=== PATIENT | female | born 1990 | race Caucasian/White ===

== ENCOUNTER → 2017-03-29 | Outpatient (CLI) | payer OTHER ==
[~2017-03-29] MED LIST: GADOBUTROL 7.5 MMOL/7.5 ML VIAL ONE
== END | disposition home or self-care (01) ==
LOC: CFH 15:23
PROVIDERS: ATTEND Family Medicine
DX: G43.119 Migraine with aura, intractable, without status migrainosus (principal)
CPT/HCPCS: 70553; A9585

== ENCOUNTER 2020-09-28 14:13 | Outpatient (CLI) | payer OTHER ==
[~2020-09-28] VITALS: Ht 154.9 cm; Wt 53.6 kg
[~2020-09-28 14:13] MED LIST changes: -GADOBUTROL 7.5 MMOL/7.5 ML VIAL ONE; +IBUP-1222 PO; +LABE100T6 PO; +OXYC1TAB14 PO
[2020-09-28 14:30] VITALS: BP 130/72
[2020-09-28] MEDS ORDERED: PREN1TAB10 PO (15:01)
[2020-09-28] MEDS ORDERED: ASPI-963 PO (15:01)
== END 2020-09-28 15:55 | disposition home or self-care (01) ==
LOC: LDOP 14:13
PROVIDERS: ATTEND Obstetrics & Gynecology
DX: O42.912 Preterm premature rupture of membranes, unspecified as to length of time between rupture and onset of labor, second trimester (principal); Z3A.22 22 weeks gestation of pregnancy
CPT/HCPCS: 76815; 84112; 99211; G0463

== ENCOUNTER 2021-01-26 05:46 | Inpatient (IN) | payer OTHER ==
[~2021-01-26] VITALS: Ht 154.9 cm; Wt 60.1 kg
[~2021-01-26 05:46] MED LIST changes: +ASPI-963 PO; +PREN1TAB10 PO
[2021-01-26] MEDS ORDERED: NEWBORN KIT ONE (05:56)
[2021-01-26] MEDS ORDERED: METOCLOPRAMIDE 5 MG/ML, 2ML ONE (05:56)
[2021-01-26] MEDS ORDERED: SODIUM CITRATE/CITRIC ACID 15 ML UDC ONE (05:57)
[2021-01-26] MEDS ORDERED: SODIUM CITRATE/CITRIC ACID 30 ML UDC PO ONE (06:00)
[2021-01-26] MEDS ORDERED: METOCLOPRAMIDE 5 MG/ML, 2ML IV ONE (06:00)
[2021-01-26] MEDS ORDERED: LACTATED RINGERS 1,000 ML IVBOLUS ONE (06:00)
[2021-01-26 06:21] LABS: BASOPHILS % (AUTO) 1 % (0-1); EOSINOPHILS % (AUTO) 1 % (1-7); LYMPHOCYTES % (AUTO) 20 % (22-44); MEAN CORPUSCULAR HGB CONC 36.5 g/dL (32.4-35.8); MEAN PLATELET VOLUME 8.2 fL (7.4-10.4); MONOCYTES % (AUTO) 7 % (2-9); NEUTROPHILS % (AUTO) 72 % (42-75); PLATELET COUNT 235 x10^3/uL (130-400); RED BLOOD COUNT 3.73 x10^6/uL (3.82-5.3); RED CELL DISTRIBUTION WIDTH 12.5 % (9.6-15.2)
[2021-01-26 06:40] VITALS: BP 131/85
[2021-01-26] MEDS ORDERED: ONDANSETRON 2MG/ML, 2ML ONE (07:14)
[2021-01-26] MEDS ORDERED: HYDROmorphone 2 MG/ML, 1ML ONE (07:14)
[2021-01-26] MEDS ORDERED: FENTANYL PF 100 MCG/2ML ONE ×2 (07:14→10:44)
[2021-01-26] MEDS ORDERED: CEFAZOLIN 1,000 MG ONE (07:14)
[2021-01-26] MEDS ORDERED: OXYTOCIN 10 UNITS/ML, 1ML ONE (07:14)
[2021-01-26] MEDS ORDERED: KETOROLAC 30 MG/1 ML ONE (08:32)
[2021-01-26] MEDS ORDERED: morphine SULFATE 10 MG/ML, 1ML IVPush PRN ×2 (09:00)
[2021-01-26] MEDS ORDERED: RHOGAM FROM BLOOD BANK 1 NOTE EA IM/IV ONE (09:00)
[2021-01-26] MEDS: LACTATED RINGERS 1,000 ML IV SCH ×4 (09:00→19:00)
[2021-01-26] MEDS ORDERED: ONDANSETRON 2MG/ML, 2ML IV PRN (09:00)
[2021-01-26] MEDS ORDERED: MEASLES,MUMPS&RUBELLA VACC/PF 0.5 ML SQ-VACC PRN (09:00)
[2021-01-26] MEDS ORDERED: METOCLOPRAMIDE 5 MG/ML, 2ML IV PRN (09:00)
[2021-01-26] MEDS ORDERED: MISOPROSTOL 200 MCG TABLET PR PRN (09:00)
[2021-01-26] MEDS ORDERED: CALCIUM CARBONATE 500 MG TAB.CHEW PO PRN (09:00)
[2021-01-26] MEDS ORDERED: SIMETHICONE 80 MG CHEW TAB PO PRN (09:00)
[2021-01-26] MEDS ORDERED: OXYcodone 5 MG/5 ML ORAL.SOL UDC PO PRN (09:30)
[2021-01-26] MEDS ORDERED: OXYcodone 5 MG/5 ML ORAL.SOL UDC ONE (09:32)
[2021-01-26] MEDS: FENTANYL PF 100 MCG/2ML IVPush PRN ×2 (10:15→11:30)
[2021-01-26 11:50] VITALS: BP 130/84
[2021-01-26] MEDS: PRENATAL VIT/IRON/FA 1 EACH TABLET PO SCH (12:58)
[2021-01-26] MEDS: OXYTOCIN 30U/ 0.9% NaCL 500ML 500 ML IV SCH ×2 (12:58→19:12)
[2021-01-26] MEDS: ACETAMINOPHEN 325 MG TABLET PO PRN ×3 (13:37→21:49)
[2021-01-26] MEDS: OXYcodone IR 5MG TABLET PO PRN ×3 (13:37→21:50)
[2021-01-26] MEDS: KETOROLAC 30 MG/1 ML IV PRN ×2 (14:36→20:37)
[2021-01-26 16:00] VITALS: BP 123/69
[2021-01-26 16:53] LABS: BASOPHILS % (AUTO) 0 % (0-1); EOSINOPHILS % (AUTO) 0 % (1-7); LYMPHOCYTES % (AUTO) 13 % (22-44); MEAN CORPUSCULAR HEMOGLOBIN 35.3 pg (27.0-34.8); MEAN CORPUSCULAR HGB CONC 36.5 g/dL (32.4-35.8); MEAN PLATELET VOLUME 7.9 fL (7.4-10.4); MONOCYTES % (AUTO) 5 % (2-9); NEUTROPHILS % (AUTO) 82 % (42-75); PLATELET COUNT 223 x10^3/uL (130-400); RED BLOOD COUNT 3.25 x10^6/uL (3.82-5.3); RED CELL DISTRIBUTION WIDTH 12.6 % (9.6-15.2)
[2021-01-26 20:30] VITALS: BP 127/85
[2021-01-26] MEDS: DOCUSATE 100 MG CAPSULE PO PRN (20:37)
[2021-01-26 23:30] VITALS: BP 124/72
[2021-01-27] MEDS: LACTATED RINGERS 1,000 ML IV SCH ×5 (01:00→17:53)
[2021-01-27] MEDS: KETOROLAC 30 MG/1 ML IV PRN ×2 (02:15→08:20)
[2021-01-27] MEDS: OXYcodone IR 5MG TABLET PO PRN ×6 (02:16→21:27)
[2021-01-27] MEDS: ACETAMINOPHEN 325 MG TABLET PO PRN ×5 (02:17→20:40)
[2021-01-27 04:25] VITALS: BP 107/62
[2021-01-27] MEDS: OXYTOCIN 30U/ 0.9% NaCL 500ML 500 ML IV SCH ×2 (05:00→15:18)
[2021-01-27 07:20] VITALS: BP 117/74
[2021-01-27] MEDS: DOCUSATE 100 MG CAPSULE PO PRN ×2 (08:20→20:40)
[2021-01-27] MEDS: PRENATAL VIT/IRON/FA 1 EACH TABLET PO SCH (08:20)
[2021-01-27] MEDS: IBUPROFEN 600 MG TABLET PO PRN ×2 (14:39→20:40)
[2021-01-27 20:30] VITALS: BP 119/80
[2021-01-28] MEDS: LACTATED RINGERS 1,000 ML IV SCH ×3 (01:00→09:00)
[2021-01-28] MEDS: OXYTOCIN 30U/ 0.9% NaCL 500ML 500 ML IV SCH (01:00)
[2021-01-28] MEDS: ACETAMINOPHEN 325 MG TABLET PO PRN ×2 (02:31→06:42)
[2021-01-28] MEDS: IBUPROFEN 600 MG TABLET PO PRN ×2 (02:31→08:31)
[2021-01-28] MEDS: OXYcodone IR 5MG TABLET PO PRN ×2 (02:31→06:42)
[2021-01-28 07:40] VITALS: BP 119/77
[2021-01-28] MEDS: DOCUSATE 100 MG CAPSULE PO PRN (08:29)
[2021-01-28] MEDS: PRENATAL VIT/IRON/FA 1 EACH TABLET PO SCH (08:29)
[2021-01-28] MEDS ORDERED: OXYC5CAP2 PO (09:04)
== END 2021-01-28 09:35 | disposition home or self-care (01) | DRG 788 ==
LOC: LDIP 05:46 → 2NW 12:49
PROVIDERS: ADMIT Obstetrics & Gynecology; ATTEND Obstetrics & Gynecology
PROC: 10D00Z1 Extraction of Products of Conception, Low, Open Approach (ICD-10-PCS; principal; 2021-01-26)
DX: O34.211 Maternal care for low transverse scar from previous cesarean delivery (principal); Z20.822 Contact with and (suspected) exposure to COVID-19; O26.893 Other specified pregnancy related conditions, third trimester; O36.63X0 Maternal care for excessive fetal growth, third trimester, not applicable or unspecified; Z37.0 Single live birth; Z3A.39 39 weeks gestation of pregnancy; Z79.82 Long term (current) use of aspirin; Z82.49 Family history of ischemic heart disease and other diseases of the circulatory system; Z82.62 Family history of osteoporosis; Z83.3 Family history of diabetes mellitus; Z67.31 Type AB blood, Rh negative
CPT/HCPCS: 36415; 85025; 86592; 86850; 86900; 87635; G0378; J0690; J1170; J1885; J2405; J3010; J2590; J2765; J7120